=== PATIENT | female | born 1950 | race Caucasian/White ===

== ENCOUNTER 2017-12-05 22:34 | Inpatient (IN) | payer BC, OTHER ==
[~2017-12-05] VITALS: Ht 160 cm; Wt 81.6 kg
--- NOTE | 2017-12-05 23:10 | NUR ---
Dr. Pagan at bedside for MSE.
[2017-12-05] MEDS ORDERED: IV NORMAL SALINE 1000 ML BAG IV ONE (23:15)
--- NOTE | 2017-12-05 23:52 | NUR ---
Patient out of ER for CT.
[2017-12-06 00:05] LABS: BASOPHILS % (AUTO) 0.6 % (0.0-2.0); EOSINOPHILS % (AUTO) 0.1 % (0.0-7.0); HEMATOCRIT 41.6 % (31.2-41.9); HEMOGLOBIN 14.3 g/dL (10.9-14.3); LYMPHOCYTES # (AUTO) 0.5 K/uL (20.0-40.0); LYMPHOCYTES % (AUTO) 6.5 % (20.5-51.5); MEAN CORPUSCULAR HEMOGLOBIN 29.5 uug (24.7-32.8); MEAN CORPUSCULAR HGB CONC 34 g/dL (32.3-35.6); MEAN CORPUSCULAR VOLUME 85.9 fL (75.5-95.3); MONOCYTES # (AUTO) 0.7 K/uL (2.0-10.0); MONOCYTES % (AUTO) 8.7 % (0.0-11.0); NEUTROPHILS % (AUTO) 84.1 % (38.5-71.5); PLATELET COUNT (AUTO) 243 K/uL (179-408); RED BLOOD CELL COUNT(AUTO) 4.84 MIL/uL (3.63-4.92); WHITE BLOOD COUNT (AUTO) 8.3 K/uL (3.8-11.8)
--- NOTE | 2017-12-06 00:10 | NUR ---
Patient back to ER from CT.
[2017-12-06 00:16] LABS: ETHANOL < 3 MG/DL (0-0)
[2017-12-06 00:19] LABS: ALANINE AMINOTRANSFERASE 22 U/L (14-59); ALKALINE PHOSPHATASE 97 U/L (50-136); ASPARTATE AMINOTRANSFERASE 11 U/L (15-37); BILIRUBIN,DIRECT 0.1 mg/dL (0.0-0.2); BILIRUBIN,TOTAL 0.7 mg/dL (0.2-1.0); CARBON DIOXIDE 23 mmol/L (21-32); CHLORIDE 101 mmol/L (98-107); CREATININE 0.8 mg/dL (0.6-1.3); GLUCOSE 113 mg/dL (74-106); POTASSIUM 3.7 mmol/L (3.5-5.1); TOTAL PROTEIN, SERUM 7.4 g/dL (6.4-8.2); UREA NITROGEN, BLOOD 15 mg/dL (7-18)
[2017-12-06 00:23] LABS: ACETAMINOPHEN < 2.0 ug/mL (10-30)
[2017-12-06 00:27] LABS: THYROID STIMULATING HORMONE 0.924 mIU/mL (0.358-3.740)
--- NOTE | 2017-12-06 00:53 | NUR ---
Patient reports nauseous. Dr. Pagan notified.
--- NOTE | 2017-12-06 00:57 | NUR ---
Dr. Pagan on panel call with [facility], [facility].
[2017-12-06] MEDS ORDERED: MAGNESIUM HYDROXIDE 30 ML LIQUID UDC PO PRN (01:45)
[2017-12-06] MEDS ORDERED: ACETAMINOPHEN 325 MG TABLET PO PRN (01:45)
[2017-12-06] MEDS ORDERED: Z GUARD REMEDY PASTE 57 GM TUBE TOP PRN (01:45)
[2017-12-06] MEDS ORDERED: HYDROCODONE/APAP 5-325MG TABLET PO PRN (01:45)
[2017-12-06] MEDS ORDERED: ONDANSETRON 4 MG/2 ML VIAL IV PRN (01:45)
--- NOTE | 2017-12-06 02:05 | NUR ---
Passed report to Jazzy FARNSWORTH Tele.
[2017-12-06] MEDS ORDERED: LEVO75TA PO (02:07)
--- NOTE | 2017-12-06 02:07 | NUR ---
PATIENT UNABLE TO RECALL ALL HOME MEDICATION AT THIS TIME. PATIENT ONLY RECALLS SYNTHROID AT THIS TIME
--- NOTE | 2017-12-06 02:20 | NUR ---
NSG: pt received alert, oriented to self and place only. on RA saturating at 97%. tele, SR. c/o slight nausea. npo at this time. will be receiving cont ivf. cont to monitor.
[2017-12-06 02:37] VITALS: BP 131/76
[2017-12-06 04:00] VITALS: BP 134/60
[2017-12-06] MEDS: IV D5W-0.45% NS +20 KCL 1,000 ML IV PRN (05:26)
--- NOTE | 2017-12-06 05:56 | NUR ---
nsg: pt a/o x 3, no acute distress noted. denies sob, n/v. assisted to the toilet. however, pt is shuffling when ambulating. tele, SR. on cont ivf. currently npo. cont to monitor.
[2017-12-06 06:11] LABS: BASOPHILS % (AUTO) 0.6 % (0.0-2.0); HEMATOCRIT 39.8 % (31.2-41.9); HEMOGLOBIN 13.6 g/dL (10.9-14.3); LYMPHOCYTES # (AUTO) 0.8 K/uL (20.0-40.0); LYMPHOCYTES % (AUTO) 11.6 % (20.5-51.5); MEAN CORPUSCULAR HEMOGLOBIN 29.5 uug (24.7-32.8); MEAN CORPUSCULAR HGB CONC 34 g/dL (32.3-35.6); MEAN CORPUSCULAR VOLUME 86.4 fL (75.5-95.3); MONOCYTES # (AUTO) 0.7 K/uL (2.0-10.0); MONOCYTES % (AUTO) 9.6 % (0.0-11.0); NEUTROPHILS # (AUTO) 5.3 K/uL (1.8-8.9); NEUTROPHILS % (AUTO) 78.2 % (38.5-71.5); PLATELET COUNT (AUTO) 237 K/uL (179-408); WHITE BLOOD COUNT (AUTO) 6.8 K/uL (3.8-11.8)
[2017-12-06 07:05] LABS: BILIRUBIN,TOTAL 0.6 mg/dL (0.2-1.0); CREATININE 0.9 mg/dL (0.6-1.3); MAGNESIUM 1.8 mg/dL (1.8-2.4); PHOSPHOROUS 2.8 mg/dL (2.5-4.9); POTASSIUM 3.9 mmol/L (3.5-5.1)
[2017-12-06] MEDS: PANTOPRAZOLE SODIUM 40 MG VIAL IV SCH (08:01)
[2017-12-06 11:14] VITALS: BP 127/74
[2017-12-06] MEDS: GUAIFENESIN/DEXTROMETHORPHAN 5 ML UDC PO PRN (14:50)
[2017-12-06] MEDS: ASPIRIN EC 81 MG TABLET.DR PO SCH (14:51)
[2017-12-06 15:19] VITALS: BP 107/46
[2017-12-06 16:07] LABS: *AMPHETAMINE, URINE NEGATIVE (NEGATIVE); *BARBITURATE, URINE NEGATIVE (NEGATIVE); *CANNABINOID, URINE NEGATIVE (NEGATIVE); *COCCAINE, URINE NEGATIVE (NEGATIVE); *OPIATE, URINE NEGATIVE (NEGATIVE); *PHENCYCLIDINE SCREEN,URINE NEGATIVE (NEGATIVE)
[2017-12-06 17:31] LABS: *BILIRUBIN,URIN NEGATIVE (NEGATIVE); *BLOOD, URINE 1+ (NEGATIVE); *CLARITY,URINE CLEAR (CLEAR); *COLOR,URINE YELLOW (YELLOW); *KETONES,URINE NEGATIVE (NEGATIVE); *PROTEIN,URINE NEGATIVE (NEGATIVE); *UROBILINOGEN,URINE 0.2 E.U./dl (NORMAL); LEUKOCYTE ESTERASE ,URINE NEGATIVE (NEGATIVE); NITRITE, URINE NEGATIVE (NEGATIVE); PH,URINE 6.5 (5.0-8.0); UGLUCOSE NEGATIVE (NEGATIVE)
[2017-12-06 17:55] LABS: SQUAMOUS EPITHELIAL CELL,UR MODERATE /HPF (NONE SEEN); WBC,URINE 0-3 /HPF (0-3)
--- NOTE | 2017-12-06 19:30 | NUR ---
PT IN ROOM ALERT AWAKE IN NO ACUTE DISTRESS. DENIES ANY PAIN/DISCOMFORT AT THIS TIME.ABLE TO MAKE NEEDS KNOWN. NEEDS REMINDERS OF SAFETY PRECAUTIONS AND TO USE CALL LIGHT FOR ASSISTANCE NEEDED. SINUS RHYTHM NOTED ON SAMPLE BUILDER. CONTINUE TO MONITOR.
[2017-12-06 20:00] VITALS: BP 137/74
--- NOTE | 2017-12-06 20:35 | NUR ---
PT FOUND SITTING ON THE FLOOR NEXT TO BED. STATED ' I TRIED TO USE THE RESTROOM BUT FELL'. DENIES ANY PAIN, DICOMFORT, OR HEAD INJURY. NO BRUISING OR OPEN WOUNDS NOTED. ABLE TO MAKE NEEDS KNOWN. NO S/S OF ACUTE DISTRESS NOTED. PT REMINDED TO USE CALL LIGHT FOR ASSISTANCE NEEDED. BED ALARM ON WITH 3 SIDE RAILS RAISED. CHARGE NURSE AND MD MADE AWARE. CONTINUE TO MONITOR.
[2017-12-06] MEDS: ZOLPIDEM 5 MG TABLET PO PRN (23:33)
[2017-12-07] VITALS: BP 135/70
[2017-12-07] MEDS: IV D5W-0.45% NS +20 KCL 1,000 ML IV PRN ×2 (00:16→14:51)
--- NOTE | 2017-12-07 01:00 | NUR ---
PT IN ROOM ASLEEP IN NO ACUTE DISTRESS. CONTINUE TO MONITOR. CALL LIGHT WITHIN REACH.
[2017-12-07 04:00] VITALS: BP 124/76
[2017-12-07] MEDS: GUAIFENESIN/DEXTROMETHORPHAN 5 ML UDC PO PRN (04:47)
--- NOTE | 2017-12-07 05:30 | NUR ---
PT IN ROOM NOTED WITH NON PRODUCTIVE COUGH AND WAS ABLE TO RECEIVE RECENT ROBITUSSIN. SINUS RHYTHM NOTED. DENIES ANY PAIN OR DISCOMFORT. REMINDED PT TO USE CALL LIGHT FOR ASSISTANCE. SAFETY MEASURES ENFORCED. CONTINUE TO MONITOR. MAINTAINING IV FLUIDS AT THIS TIME.
[2017-12-07] MEDS: LEVOTHYROXINE SODIUM 75 MCG TABLET PO SCH (06:01)
[2017-12-07 07:15] LABS: BASOPHILS % (AUTO) 0.9 % (0.0-2.0); EOSINOPHILS % (AUTO) 0.8 % (0.0-7.0); HEMATOCRIT 38.6 % (31.2-41.9); LYMPHOCYTES # (AUTO) 1.2 K/uL (20.0-40.0); LYMPHOCYTES % (AUTO) 24.4 % (20.5-51.5); MEAN CORPUSCULAR HEMOGLOBIN 29.2 uug (24.7-32.8); MEAN CORPUSCULAR HGB CONC 34 g/dL (32.3-35.6); MEAN CORPUSCULAR VOLUME 86.6 fL (75.5-95.3); MONOCYTES # (AUTO) 0.6 K/uL (2.0-10.0); MONOCYTES % (AUTO) 13.3 % (0.0-11.0); NEUTROPHILS # (AUTO) 2.9 K/uL (1.8-8.9); NEUTROPHILS % (AUTO) 60.6 % (38.5-71.5); PLATELET COUNT (AUTO) 210 K/uL (179-408); RED BLOOD CELL COUNT(AUTO) 4.45 MIL/uL (3.63-4.92); WHITE BLOOD COUNT (AUTO) 4.8 K/uL (3.8-11.8)
[2017-12-07 07:33] LABS: CREATININE 0.8 mg/dL (0.6-1.3); PHOSPHOROUS 2.4 mg/dL (2.5-4.9); POTASSIUM 3.7 mmol/L (3.5-5.1)
--- NOTE | 2017-12-07 07:57 | NUR ---
Sleeping, comfortable. Side rails padded. Bed alarm on. Tele SR 75
[2017-12-07 08:00] VITALS: BP 131/78
[2017-12-07] MEDS: PANTOPRAZOLE SODIUM 40 MG VIAL IV SCH (09:00)
[2017-12-07] MEDS: ASPIRIN EC 81 MG TABLET.DR PO SCH (09:00)
--- NOTE | 2017-12-07 10:45 | NUR ---
PT eval done; Assisted out of bed by PT, ambulated in the hallway
[2017-12-07 11:46] VITALS: BP 126/68
--- NOTE | 2017-12-07 12:00 | NUR ---
IV site leaking and other saline lock pulled out. Reinserted to left forearm. IVF infusing
[2017-12-07 15:46] VITALS: BP 117/65
--- NOTE | 2017-12-07 16:06 | NUR ---
Bed alarm on; reinstructed to use call light
[2017-12-07] MEDS ORDERED: NEUTRA PHOS PACKET PO ONE (17:00)
--- NOTE | 2017-12-07 18:41 | NUR ---
Tele discontinued. Bed alarm on. Uses call light.
--- NOTE | 2017-12-07 19:30 | NUR ---
PT IN ROOM ALERT AWAKE AND ORIENTED IN NO ACUTE DISTRESS. DENIES ANY PAIN OR DISCOMFORT. MAINTAINING IV HYDRATION. ABLE TO MAKE NEEDS KNOWN. SEIZURE PRECAUTIONS ENFORCED. CALL LIGHT WITHIN REACH. BED ALARM ON. REMINDED PT TO REQUEST FOR ASSISTANCE WHEN NEEDED. WILL CONTINUE TO MONITOR.
[2017-12-07 20:00] VITALS: BP 135/71
[2017-12-07] MEDS: ZOLPIDEM 5 MG TABLET PO PRN (23:11)
[2017-12-08] MEDS: IV D5W-0.45% NS +20 KCL 1,000 ML IV PRN (03:47)
[2017-12-08 04:00] VITALS: BP 123/76
--- NOTE | 2017-12-08 05:51 | NUR ---
PT IN ROOM ABLE TO SLEEP UP TO 4 HRS. MAINTAINING IV HYDRATION AT THIS TIME. DENIES ANY PAIN OR DISCOMFORT. NEEDS FREQUENT REMINDERS TO AVOID GETTING OOB AND TO REQUEST FOR ASSISTANCE WHEN NEEDED. SEIZURE PRECAUTIONS IN PLACE WITH PADDED SIDERAILS. PT NOTED WITH PERIODS OF FORGETFULNESS REGARDING TIME.
[2017-12-08] MEDS: LEVOTHYROXINE SODIUM 75 MCG TABLET PO SCH (06:07)
[2017-12-08 06:36] LABS: CREATININE 0.8 mg/dL (0.6-1.3); MAGNESIUM 2.2 mg/dL (1.8-2.4); PHOSPHOROUS 3.4 mg/dL (2.5-4.9); POTASSIUM 4.1 mmol/L (3.5-5.1)
[2017-12-08 06:51] LABS: BASOPHILS # (AUTO) 0.1 K/uL (0.0-8.0); BASOPHILS % (AUTO) 0.9 % (0.0-2.0); EOSINOPHILS # (AUTO) 0.2 K/uL (0.0-0.7); EOSINOPHILS % (AUTO) 2.9 % (0.0-7.0); HEMOGLOBIN 13.3 g/dL (10.9-14.3); LYMPHOCYTES % (AUTO) 36.2 % (20.5-51.5); MEAN CORPUSCULAR HEMOGLOBIN 29.7 uug (24.7-32.8); MEAN CORPUSCULAR HGB CONC 34 g/dL (32.3-35.6); MEAN CORPUSCULAR VOLUME 86.9 fL (75.5-95.3); MONOCYTES # (AUTO) 0.6 K/uL (2.0-10.0); NEUTROPHILS # (AUTO) 2.7 K/uL (1.8-8.9); PLATELET COUNT (AUTO) 223 K/uL (179-408); RED BLOOD CELL COUNT(AUTO) 4.48 MIL/uL (3.63-4.92); WHITE BLOOD COUNT (AUTO) 5.5 K/uL (3.8-11.8)
[2017-12-08] MEDS ORDERED: PANTOPRAZOLE SODIUM 40 MG TABLET.DR PO SCH (07:00)
--- NOTE | 2017-12-08 07:50 | NUR ---
PT IN ROOM ASLEEP IN NO ACUTE DISTRESS. CONTINUE TO MONITOR. CALL LIGHT WITHIN REACH.
[2017-12-08] MEDS: ASPIRIN EC 81 MG TABLET.DR PO SCH (08:01)
[2017-12-08 11:40] VITALS: BP 92/62
[2017-12-08] MEDS ORDERED: ZOLP5TAB8 PO (13:03)
[2017-12-08] MEDS ORDERED: HYDR-3326 PO (13:03)
[2017-12-08] MEDS ORDERED: GUAI5SYR PO (13:03)
[2017-12-08] MEDS ORDERED: PANT40TA2 PO (13:03)
[2017-12-08] MEDS ORDERED: ACET325T53 PO (13:03)
[2017-12-08] MEDS ORDERED: MAGN400O6 PO (13:03)
[2017-12-08] MEDS ORDERED: ASPI-618 PO (13:03)
--- NOTE | 2017-12-08 14:34 | NUR ---
D/C ORDERS RECEIVED NOTED AND CARRIED OUT,D/C [place] PER MD ORDERS.RN REPORT GIVEN TO JAVAD CLEMENTS ,PT LEFT THE FACILITY VIA WHEEL CHAIR IN STABLE CONDITION TO ARU
== END 2017-12-08 14:47 | DRG 152 ==
LOC: ER 22:35 → TELE 12-06 00:50 → MED 12-07 17:37
PROVIDERS: ADMIT Internal Medicine; ATTEND Internal Medicine
DX: J06.9 Acute upper respiratory infection, unspecified (principal); G92 Toxic encephalopathy; E88.09 Other disorders of plasma-protein metabolism, not elsewhere classified; Z87.01 Personal history of pneumonia (recurrent); E66.9 Obesity, unspecified; Z68.31 Body mass index [BMI] 31.0-31.9, adult; E78.5 Hyperlipidemia, unspecified; E03.9 Hypothyroidism, unspecified; H40.9 Unspecified glaucoma; Z90.710 Acquired absence of both cervix and uterus; R94.02 Abnormal brain scan; R25.1 Tremor, unspecified
CPT/HCPCS: 36415; 70030-TC; 70450; 71045; 80307; 82746; 83605; 83735; 84100; 84443; 85025; 85651; 85730; 87040; 87086; 93005; 93307; 97116; 97165; 97530; A4663; C9113; G0480; G0480-TC; J3490; J7030

== ENCOUNTER 2017-12-08 15:08 | Inpatient (IN) | payer BC, OTHER ==
[~2017-12-08] VITALS: Ht 160 cm; Wt 81.6 kg
--- NOTE | 2017-12-08 14:30 | NUR ---
Admitted from [facility] 2nd floor, per wheelchair accompanied by LIBRARY MEDIA SPECIALIST. Admitted for acute metabolic encephalopathy. Awake, alert x4. No tin any form of distress. No dizziness, SOB or chest pains. BRPs with assistance, patient has weak gait. Denies any pain. Skin intact. Routine admission care done. Informed Dr. Walls and Dr. Wyatt of admission. Informed patient goals for rehab. Oriented to unit, equipment and staff. Call light within reach.
[~2017-12-08 15:08] MED LIST: ACET325T53 PO; ASPI-618 PO; GUAI5SYR PO; HYDR-3326 PO; LEVO75TA PO; MAGN400O6 PO; PANT40TA2 PO; ZOLP5TAB8 PO
[2017-12-08 16:26] VITALS: BP 110/71
--- NOTE | 2017-12-08 19:30 | NUR ---
Received patient in bed. Alert and verbally responsive. Able to make needs known. No c/o pain and discomfort at this time. No acute distress. No SOB. Kept clean and dry. All needs attended to promptly. Call light within reach. Will continue to monitor.
[2017-12-08 19:57] VITALS: BP 138/73
[2017-12-08] MEDS ORDERED: ACETAMINOPHEN 325 MG TABLET PO PRN (20:00)
[2017-12-08] MEDS ORDERED: MAGNESIUM HYDROXIDE 30 ML LIQUID UDC PO PRN (20:00)
[2017-12-08] MEDS ORDERED: HYDROCODONE/APAP 5-325MG TABLET PO PRN (20:00)
[2017-12-08] MEDS ORDERED: ZOLPIDEM 5 MG TABLET PO PRN (20:00)
--- NOTE | 2017-12-08 20:00 | NUR ---
Patient verbalized to me that she has Travatan eye drops that she takes every night at home for glaucoma and that her friend had brought a bottle from home. She say she hasn't had it in 5 days. I explained to her that I would let the doctor know so we can get an order for her and she can start receiving it here at night. Dr. Wyatt made aware with new orders noted and carried out.
[2017-12-08] MEDS: GUAIFENESIN/DEXTROMETHORPHAN 5 ML UDC PO PRN (20:54)
[2017-12-09] MEDS: PANTOPRAZOLE SODIUM 40 MG TABLET.DR PO SCH (06:46)
[2017-12-09] MEDS: LEVOTHYROXINE SODIUM 75 MCG TABLET PO SCH (06:46)
--- NOTE | 2017-12-09 07:02 | NUR ---
Patient slept throughout the night. No c/o pain and discomfort. No acute distress. No SOB. Ambulates to the bathroom with assistance. Kept clean and dry. All needs attended to promptly. Call light within reach. Will continue to monitor.
[2017-12-09 07:30] VITALS: BP 124/78
[2017-12-09] MEDS: ASPIRIN EC 81 MG TABLET.DR PO SCH (09:51)
--- NOTE | 2017-12-09 18:03 | NUR ---
Patient had spilled some drink on the bed, requesting a change of bedding. Sakina is busy at the moment, will notify at the earliest possible time. Patient is willing to wait. Will notify, Kenan for next shift if Sakina is unable to get time to do it.
[2017-12-09 20:36] VITALS: BP 134/81
[2017-12-09] MEDS ORDERED: TRAVOPROST 0.004% OPHT DROP 2.5 ML BOTTLE EACHEYE SCH (21:00)
[2017-12-09] MEDS: LATANOPROST OPHT DROP 2.5 ML BOTTLE EACHEYE SCH (22:23)
[2017-12-09] MEDS: GUAIFENESIN/DEXTROMETHORPHAN 5 ML UDC PO PRN (22:44)
[2017-12-10] MEDS: PANTOPRAZOLE SODIUM 40 MG TABLET.DR PO SCH (06:32)
[2017-12-10] MEDS: LEVOTHYROXINE SODIUM 75 MCG TABLET PO SCH (06:32)
[2017-12-10 07:30] VITALS: BP 124/75
[2017-12-10] MEDS: ASPIRIN EC 81 MG TABLET.DR PO SCH (08:41)
--- NOTE | 2017-12-10 20:00 | NUR ---
RECEIVED PATIENT AWAKE IN BED, TALKING ON THE PHONE. PATIENT IS A/O/ X4. VERY PLEASANT WHEN APPROACHED. VS WNL. DENIES ANY PAIN OR DISCOMFORT. NO RESP. DISTRESS NOTED. CALL LIGHT IN REACH. ALL NEEDS ATTENDED. WILL CONTINUE TO MONITOR.
[2017-12-10] MEDS: LATANOPROST OPHT DROP 2.5 ML BOTTLE EACHEYE SCH (20:36)
[2017-12-10 22:00] VITALS: BP 125/67
[2017-12-11] MEDS: PANTOPRAZOLE SODIUM 40 MG TABLET.DR PO SCH (06:24)
[2017-12-11] MEDS: LEVOTHYROXINE SODIUM 75 MCG TABLET PO SCH (06:24)
--- NOTE | 2017-12-11 07:13 | NUR ---
PATIENT AWAKE IN BED. SLEPT WELL. CALL LIGHT IN REACH.
--- NOTE | 2017-12-11 07:35 | NUR ---
RECEIVED PATIENT IN BED SLEEPING PATIENT IS A/O/ X4. VERY PLEASANT WHEN APPROACHED. VS WNL. DENIES ANY PAIN OR DISCOMFORT. NO RESP. DISTRESS NOTED. CALL LIGHT IN REACH. ALL NEEDS ATTENDED. WILL CONTINUE TO MONITOR.
[2017-12-11 08:00] VITALS: BP 114/68
[2017-12-11] MEDS: ASPIRIN EC 81 MG TABLET.DR PO SCH (08:06)
[2017-12-11] MEDS: CARBIDOPA/LEVODOPA 25-100MG TABLET PO SCH ×2 (13:54→16:09)
[2017-12-11 19:30] VITALS: BP 145/76
[2017-12-11] MEDS: LATANOPROST OPHT DROP 2.5 ML BOTTLE EACHEYE SCH (21:33)
[2017-12-12] MEDS: PANTOPRAZOLE SODIUM 40 MG TABLET.DR PO SCH (06:03)
[2017-12-12] MEDS: LEVOTHYROXINE SODIUM 75 MCG TABLET PO SCH (06:03)
--- NOTE | 2017-12-12 06:30 | NUR ---
Pt alert awake in no acute distress. Able to make needs known. Denies any pain, discomfort, or SOB. Reminded pt to request for assistance when needed. Pt aware of plan of care. No s/s of tremors noted overnight. Will continue to monitor. Call light placed within reach.
[2017-12-12 07:06] VITALS: BP 153/80
[2017-12-12] MEDS: CARBIDOPA/LEVODOPA 25-100MG TABLET PO SCH ×3 (08:11→16:10)
[2017-12-12] MEDS: ASPIRIN EC 81 MG TABLET.DR PO SCH (08:11)
[2017-12-12 20:37] VITALS: BP 126/67
[2017-12-12] MEDS: LATANOPROST OPHT DROP 2.5 ML BOTTLE EACHEYE SCH (20:54)
[2017-12-12] MEDS: GUAIFENESIN/DEXTROMETHORPHAN 5 ML UDC PO PRN (20:54)
[2017-12-13] MEDS: LEVOTHYROXINE SODIUM 75 MCG TABLET PO SCH (06:24)
[2017-12-13] MEDS: PANTOPRAZOLE SODIUM 40 MG TABLET.DR PO SCH (06:24)
[2017-12-13 07:06] VITALS: BP 118/76
[2017-12-13 07:09] VITALS: BP 110/49
[2017-12-13] MEDS: CARBIDOPA/LEVODOPA 25-100MG TABLET PO SCH ×3 (08:12→16:02)
[2017-12-13] MEDS: ASPIRIN EC 81 MG TABLET.DR PO SCH (08:12)
--- NOTE | 2017-12-13 10:59 | NUR ---
I agree Addendum: 12/13/17 at 1100 by ALBERTO SCOTT OT Amended: Links added.
--- NOTE | 2017-12-13 10:59 | NUR ---
I agree Addendum: 12/13/17 at 1059 by ALBERTO SCOTT OT Amended: Links added.
--- NOTE | 2017-12-13 20:00 | NUR ---
RECEIVED PATIENT AWAKE IN BED WITH VISITOR AT BEDSIDE. PATIENT IS A/O X4. DENIES PAIN OR DISCOMFORT AT THIS TIME. NO RESP. DISTRESS NOTED. VS WNL. CALL LIGHT IN REACH. ALL NEEDS ATTENDED. WILL CONTINUE TO MONITOR AND ASSESS.
[2017-12-13 20:22] VITALS: BP 119/72
[2017-12-13] MEDS: LATANOPROST OPHT DROP 2.5 ML BOTTLE EACHEYE SCH (20:42)
[2017-12-14] MEDS: LEVOTHYROXINE SODIUM 75 MCG TABLET PO SCH (06:15)
[2017-12-14] MEDS: PANTOPRAZOLE SODIUM 40 MG TABLET.DR PO SCH (06:15)
--- NOTE | 2017-12-14 06:36 | NUR ---
PATIENT AWAKE IN BED. SLEPT WELL THROUGHOUT THE NIGHT. DENIES PAIN OR ANY OTHER DISCOMFORT. CALL LIGHT IN REACH. ALL NEEDS ATTENDED. WILL CONTINUE TO MONITOR.
[2017-12-14 08:00] VITALS: BP 149/79
[2017-12-14] MEDS: CARBIDOPA/LEVODOPA 25-100MG TABLET PO SCH ×3 (08:09→16:03)
[2017-12-14] MEDS: ASPIRIN EC 81 MG TABLET.DR PO SCH (08:09)
--- NOTE | 2017-12-14 13:20 | NUR ---
I agree Addendum: 12/14/17 at 1320 by ALBERTO SCOTT OT Amended: Links added.
--- NOTE | 2017-12-14 13:20 | NUR ---
I agree Addendum: 12/14/17 at 1321 by ALBERTO SCOTT OT Amended: Links added.
--- NOTE | 2017-12-14 19:30 | NUR ---
Received pt sitting comfortably in bed alert and oriented x3. Able to make needs known. Pleasant, calm and cooperative to care. No acute distress noted. No complaints of pain or discomfort at this time. No SOB noted. Safety and fall precautions observed and maintained. Encouraged to verbalize needs and concerns. Call light within reach. All needs attended.
[2017-12-14] MEDS: GUAIFENESIN/DEXTROMETHORPHAN 5 ML UDC PO PRN (20:12)
[2017-12-14] MEDS: LATANOPROST OPHT DROP 2.5 ML BOTTLE EACHEYE SCH (20:12)
[2017-12-14 21:40] VITALS: BP 134/75
--- NOTE | 2017-12-15 06:02 | NUR ---
Patient slept comfortably throughout the shift with no signs/symptoms of distress. No complaints of pain or discomfort. Complained of non productive cough, PRN robitussin given. Relief noted. Kept clean, dry and comfortable. Call light within reach. All needs attended.
[2017-12-15] MEDS: LEVOTHYROXINE SODIUM 75 MCG TABLET PO SCH (06:27)
[2017-12-15] MEDS: PANTOPRAZOLE SODIUM 40 MG TABLET.DR PO SCH (06:27)
--- NOTE | 2017-12-15 07:20 | NUR ---
PATIENT AWAKE IN BED. SLEPT. DENIES PAIN OR ANY OTHER DISCOMFORT. CALL LIGHT IN REACH. ALL NEEDS ATTENDED. WILL CONTINUE TO MONITOR.
[2017-12-15] MEDS: CARBIDOPA/LEVODOPA 25-100MG TABLET PO SCH ×2 (08:09→12:19)
[2017-12-15] MEDS: ASPIRIN EC 81 MG TABLET.DR PO SCH (08:09)
[2017-12-15 08:43] VITALS: BP 119/73
[2017-12-15] MEDS: GUAIFENESIN/DEXTROMETHORPHAN 5 ML UDC PO PRN (10:12)
--- NOTE | 2017-12-15 13:33 | NUR ---
D/C ORDERS RECEIVED NOTED AND CARRIED OUT,D/C INSTRUCTION AND EDUCATION GIVEN TO THE PT ,OT VERBALIZED UNDERSTANDING ALL THE INSTRUCTION AND MAKE HER OPP WITH HER DR ON MONDAY.PT LEFT THE FACILITY VIA PRIVATE CAR WITH HER GIRL FRIEND IN STABLE CONDITION.
--- NOTE | 2017-12-15 13:50 | NUR ---
I agree Addendum: 12/15/17 at 1351 by ALBERTO SCOTT OT Amended: Links added.
== END 2017-12-15 13:50 | disposition home health service (06) | DRG 56 ==
PROVIDERS: ADMIT Physical Medicine & Rehabilitation Pain Medicine; ATTEND Physical Medicine & Rehabilitation Pain Medicine
DX: G20 Parkinson's disease (principal); G93.41 Metabolic encephalopathy; G93.89 Other specified disorders of brain; E03.9 Hypothyroidism, unspecified; R27.0 Ataxia, unspecified; R53.1 Weakness; E66.9 Obesity, unspecified; Z68.31 Body mass index [BMI] 31.0-31.9, adult; E78.5 Hyperlipidemia, unspecified; H40.9 Unspecified glaucoma; J20.8 Acute bronchitis due to other specified organisms; Z87.01 Personal history of pneumonia (recurrent); Z90.710 Acquired absence of both cervix and uterus; R68.2 Dry mouth, unspecified
CPT/HCPCS: 92526; 92610; 97110; 97112; 97116; 97165; 97530; 97535; A4663

== ENCOUNTER 2018-08-06 22:20 | Inpatient (IN) | payer MEDICARE, BC ==
[~2018-08-06] VITALS: Ht 165.1 cm; Wt 88.9 kg
[2018-08-06] MEDS ORDERED: TRAV5DRO OP (22:39)
[2018-08-06] MEDS ORDERED: sinemet PO (22:39)
[2018-08-06] MEDS ORDERED: ATOR10TA PO (22:39)
[2018-08-06] MEDS ORDERED: CYCL30DR OP (22:55)
[2018-08-06] MEDS ORDERED: IV NORMAL SALINE 500 ML BAG IV ONE (23:00)
[2018-08-06 23:20] LABS: BASOPHILS # (AUTO) 0.1 K/uL (0.0-8.0); EOSINOPHILS % (AUTO) 0.3 % (0.0-7.0); HEMATOCRIT 42.5 % (31.2-41.9); HEMOGLOBIN 14.6 g/dL (10.9-14.3); LYMPHOCYTES # (AUTO) 1.4 K/uL (20.0-40.0); LYMPHOCYTES % (AUTO) 13.1 % (20.5-51.5); MEAN CORPUSCULAR HGB CONC 34 g/dL (32.3-35.6); MEAN CORPUSCULAR VOLUME 87.1 fL (75.5-95.3); MONOCYTES # (AUTO) 0.8 K/uL (2.0-10.0); MONOCYTES % (AUTO) 7.5 % (0.0-11.0); NEUTROPHILS # (AUTO) 8.6 K/uL (1.8-8.9); NEUTROPHILS % (AUTO) 78.1 % (38.5-71.5); PLATELET COUNT (AUTO) 308 K/uL (179-408); RED BLOOD CELL COUNT(AUTO) 4.88 MIL/uL (3.63-4.92)
[2018-08-06 23:42] LABS: ALANINE AMINOTRANSFERASE 13 U/L (14-59); ALKALINE PHOSPHATASE 104 U/L (50-136); ASPARTATE AMINOTRANSFERASE 12 U/L (15-37); BILIRUBIN,DIRECT 0.1 mg/dL (0.0-0.2); BILIRUBIN,TOTAL 0.7 mg/dL (0.2-1.0); CARBON DIOXIDE 26 mmol/L (21-32); CHLORIDE 99 mmol/L (98-107); GLUCOSE 143 mg/dL (74-106); POTASSIUM 4.4 mmol/L (3.5-5.1); TOTAL PROTEIN, SERUM 7.9 g/dL (6.4-8.2); UREA NITROGEN, BLOOD 20 mg/dL (7-18)
[2018-08-06 23:53] LABS: THYROID STIMULATING HORMONE 0.561 mIU/mL (0.358-3.740)
[2018-08-06 23:55] LABS: ETHANOL < 3 MG/DL (0-0)
[2018-08-06 23:55] LABS: *BILIRUBIN,URIN NEGATIVE (NEGATIVE); *BLOOD, URINE NEGATIVE (NEGATIVE); *CLARITY,URINE CLEAR (CLEAR); *COLOR,URINE YELLOW (YELLOW); *KETONES,URINE NEGATIVE (NEGATIVE); *PROTEIN,URINE NEGATIVE (NEGATIVE); *UROBILINOGEN,URINE 0.2 E.U./dl (NORMAL); LEUKOCYTE ESTERASE ,URINE NEGATIVE (NEGATIVE); NITRITE, URINE NEGATIVE (NEGATIVE); UGLUCOSE NEGATIVE (NEGATIVE)
[2018-08-06 23:56] LABS: ACETAMINOPHEN < 2.0 ug/mL (10-30)
[2018-08-07 00:06] LABS: BACTERIA,URINE NONE SEEN /HPF (NONE SEEN); RBC,URINE 0-3 /HPF (0-3); SQUAMOUS EPITHELIAL CELL,UR FEW /HPF (NONE SEEN); WBC,URINE 0-3 /HPF (0-3)
[2018-08-07 00:13] LABS: *AMPHETAMINE, URINE NEGATIVE (NEGATIVE); *BARBITURATE, URINE NEGATIVE (NEGATIVE); *CANNABINOID, URINE NEGATIVE (NEGATIVE); *COCCAINE, URINE NEGATIVE (NEGATIVE); *OPIATE, URINE NEGATIVE (NEGATIVE); *PHENCYCLIDINE SCREEN,URINE NEGATIVE (NEGATIVE)
[2018-08-07] MEDS ORDERED: HYDROMORPHONE 2 MG/1 ML DISP.SYRIN IV PRN (00:30)
[2018-08-07] MEDS ORDERED: ONDANSETRON 4 MG/2 ML VIAL IV PRN (00:30)
[2018-08-07] MEDS ORDERED: ACETAMINOPHEN 325 MG TABLET PO PRN (00:30)
[2018-08-07] MEDS ORDERED: LORAZEPAM 0.5 MG TABLET PO PRN (00:30)
[2018-08-07] MEDS ORDERED: MAGNESIUM HYDROXIDE 30 ML LIQUID UDC PO PRN (00:30)
[2018-08-07 00:56] VITALS: BP 117/71
[2018-08-07] MEDS: IV NS 1000 ML 1,000 ML IV PRN ×2 (01:35→18:03)
[2018-08-07] MEDS: HYDROCODONE/APAP 5-325MG TABLET PO PRN ×2 (02:15→20:29)
[2018-08-07 06:19] VITALS: BP 112/59
[2018-08-07] MEDS: PANTOPRAZOLE SODIUM 40 MG TABLET.DR PO SCH (06:42)
[2018-08-07] MEDS: LEVOTHYROXINE SODIUM 75 MCG TABLET PO SCH (06:42)
[2018-08-07 07:17] LABS: PHOSPHOROUS 3.6 mg/dL (2.5-4.9)
[2018-08-07] MEDS: ASPIRIN EC 81 MG TABLET.DR PO SCH (08:49)
[2018-08-07 11:51] VITALS: BP 103/56
[2018-08-07] MEDS: CARBIDOPA/LEVODOPA 25-100MG TABLET PO SCH ×2 (12:21→16:41)
[2018-08-07] MEDS: POLYVINYL ALCOHOL OPHT DROPS 15 ML BOTTLE EACHEYE SCH ×2 (14:00→16:42)
[2018-08-07 15:24] VITALS: BP 109/54
[2018-08-07 19:00] VITALS: BP 106/61
[2018-08-07] MEDS ORDERED: GUAIFENESIN/DEXTROMETHORPHAN 5 ML UDC PO PRN (20:15)
[2018-08-07] MEDS: ATORVASTATIN 10 MG TABLET PO SCH (20:27)
[2018-08-07] MEDS: LATANOPROST OPHT DROP 2.5 ML BOTTLE EACHEYE SCH (20:28)
[2018-08-07] MEDS ORDERED: Medication Not On Formulary EA (Travoprost (Travatan Z) 5 ML) OP SCH (21:00)
[2018-08-08 04:00] VITALS: BP 131/66
[2018-08-08] MEDS: PANTOPRAZOLE SODIUM 40 MG TABLET.DR PO SCH (06:18)
[2018-08-08] MEDS: IV NS 1000 ML 1,000 ML IV PRN ×2 (06:24→19:20)
[2018-08-08] MEDS: HYDROCODONE/APAP 5-325MG TABLET PO PRN ×2 (06:24→16:05)
[2018-08-08] MEDS: LEVOTHYROXINE SODIUM 75 MCG TABLET PO SCH (06:37)
[2018-08-08 06:52] LABS: BASOPHILS # (AUTO) 0.1 K/uL (0.0-8.0); EOSINOPHILS # (AUTO) 0.2 K/uL (0.0-0.7); EOSINOPHILS % (AUTO) 2.9 % (0.0-7.0); HEMATOCRIT 38.8 % (31.2-41.9); HEMOGLOBIN 13.4 g/dL (10.9-14.3); LYMPHOCYTES # (AUTO) 1.5 K/uL (20.0-40.0); LYMPHOCYTES % (AUTO) 18.4 % (20.5-51.5); MEAN CORPUSCULAR HEMOGLOBIN 30.3 uug (24.7-32.8); MEAN CORPUSCULAR HGB CONC 35 g/dL (32.3-35.6); MEAN CORPUSCULAR VOLUME 87.7 fL (75.5-95.3); MONOCYTES # (AUTO) 0.7 K/uL (2.0-10.0); MONOCYTES % (AUTO) 8.7 % (0.0-11.0); NEUTROPHILS # (AUTO) 5.7 K/uL (1.8-8.9); PLATELET COUNT (AUTO) 268 K/uL (179-408); RED BLOOD CELL COUNT(AUTO) 4.43 MIL/uL (3.63-4.92); WHITE BLOOD COUNT (AUTO) 8.3 K/uL (3.8-11.8)
[2018-08-08 07:09] LABS: BILIRUBIN,TOTAL 0.4 mg/dL (0.2-1.0); CREATININE 0.9 mg/dL (0.6-1.3); MAGNESIUM 1.9 mg/dL (1.8-2.4); PHOSPHOROUS 3.1 mg/dL (2.5-4.9); POTASSIUM 3.9 mmol/L (3.5-5.1); TOTAL PROTEIN, SERUM 6.8 g/dL (6.4-8.2)
[2018-08-08] MEDS: CARBIDOPA/LEVODOPA 25-100MG TABLET PO SCH ×3 (08:28→16:05)
[2018-08-08] MEDS: ASPIRIN EC 81 MG TABLET.DR PO SCH (08:28)
[2018-08-08] MEDS: POLYVINYL ALCOHOL OPHT DROPS 15 ML BOTTLE EACHEYE SCH ×2 (08:33→16:05)
[2018-08-08 11:17] VITALS: BP 130/70
[2018-08-08] MEDS ORDERED: CARB-93 PO (11:17)
[2018-08-08] MEDS ORDERED: GUAI5SYR PO (13:42)
[2018-08-08 15:28] VITALS: BP 130/73
[2018-08-08 20:00] VITALS: BP 129/65
[2018-08-08] MEDS: ATORVASTATIN 10 MG TABLET PO SCH (20:32)
[2018-08-08] MEDS: LATANOPROST OPHT DROP 2.5 ML BOTTLE EACHEYE SCH (20:32)
[2018-08-09 04:19] VITALS: BP 115/60
[2018-08-09] MEDS: PANTOPRAZOLE SODIUM 40 MG TABLET.DR PO SCH (06:14)
[2018-08-09] MEDS: LEVOTHYROXINE SODIUM 75 MCG TABLET PO SCH (06:41)
[2018-08-09] MEDS: ASPIRIN EC 81 MG TABLET.DR PO SCH (08:32)
[2018-08-09] MEDS: POLYVINYL ALCOHOL OPHT DROPS 15 ML BOTTLE EACHEYE SCH (08:32)
[2018-08-09] MEDS: CARBIDOPA/LEVODOPA 25-100MG TABLET PO SCH (08:32)
[2018-08-09 10:50] VITALS: BP 105/65
== END 2018-08-09 11:00 | disposition home health service (06) | DRG 640 ==
LOC: ER 22:24 → MED 08-07 00:35
PROVIDERS: ADMIT Registered Nurse; ATTEND Registered Nurse
DX: E86.0 Dehydration (principal); G92 Toxic encephalopathy; G91.9 Hydrocephalus, unspecified; G20 Parkinson's disease; E03.9 Hypothyroidism, unspecified; E66.9 Obesity, unspecified; Z87.01 Personal history of pneumonia (recurrent); R73.9 Hyperglycemia, unspecified; Z68.32 Body mass index [BMI] 32.0-32.9, adult
CPT/HCPCS: 36415; 70030-TC; 70450; 71045; 80307; 83605; 83735; 84100; 84443; 85025; 85730; 87040; 87086; 87400; 93005; 97116; 97530; A4663; G0378; G0480; G0480-TC; J2405; J7030; J7040